=== PATIENT | male | born 2000 | race Caucasian/White ===

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

== ENCOUNTER 2020-06-03 12:46 | Emergency (ER) | payer OTHER ==
[2020-06-03] MEDS ORDERED: NORMAL SALINE 1000 ML 1,000 ML IV ONE (13:12)
--- NOTE | 2020-06-03 13:15 | ER Document Report ---
ED Medical Screen (RME) - General Chief Complaint: Abdominal Pain Stated Complaint: RIGHT ABDOMINAL PAIN Time Seen by Provider: 06/03/20 13:06 Notes: Patient is a 20-year-old male who presents emergency department with a chief complaint of right lower abdominal pain. Patient states that he has been on and off for the past 5 months. Patient states that when he lifts heavy objects he ends up having the pain. He denies any testicular pain. States that he only gets nauseous when he lifts heavy objects. He has bowel movements every day. Denies any abdominal surgery. Exam: Slightly tender right lower quadrant. I have greeted and performed a rapid initial assessment of this patient. A comprehensive ED assessment and evaluation of the patient, analysis of test results and completion of medical decision making process will be conducted by an additional ED providers. TRAVEL OUTSIDE OF THE [place] IN LAST 30 DAYS: No - Related Data Allergies/Adverse Reactions: No Known Allergies Allergy (Verified 09/03/18 15:46) Past Medical History Renal/ Medical History: Denies: Hx Peritoneal Dialysis Psychiatric Medical History: Reports: Hx Depression Physical Exam - Vital signs Vitals: Temp Pulse Resp BP Pulse Ox 98.7 F 88 16 126/76 H 100 06/03/20 12:50 06/03/20 12:50 06/03/20 12:50 06/03/20 12:50 06/03/20 12:50 Course - Vital Signs Vital signs: Temp Pulse Resp BP Pulse Ox 98.7 F 88 16 126/76 H 100 06/03/20 12:50 06/03/20 12:50 06/03/20 12:50 06/03/20 12:50 06/03/20 12:50
[2020-06-03 14:05] LABS: ABSOLUTE BASOPHILS # (AUTO) 0.1 10^3/uL (0.0-0.2); ABSOLUTE EOSINOPHILS # (AUTO) 0.1 10^3/uL (0.0-0.6); ABSOLUTE LYMPHOCYTES (AUTO) 1.7 10^3/uL (0.5-4.7); ABSOLUTE MONOCYTES (AUTO) 0.3 10^3/uL (0.1-1.4); ABSOLUTE NEUT (AUTO) 2.5 10^3/uL (1.7-8.2); BASOPHILS % (AUTO) 2.3 % (0-2); EOSINOPHILS % (AUTO) 1.8 % (0-6); LYMPHOCYTES % (AUTO) 36.1 % (13-45); MEAN CORPUSCULAR HEMOGLOBIN 31.1 pg (27.0-33.4); MEAN CORPUSCULAR HGB CONC 34.2 g/dL (32.0-36.0); MEAN CORPUSCULAR VOLUME 91 fl (80-97); MONOCYTES % (AUTO) 6.9 % (3-13); PLATELET COUNT 169 10^3/uL (150-450); RED BLOOD COUNT 4.52 10^6/uL (4.35-5.55); RED CELL DISTRIBUTION WIDTH 13.4 % (11.5-14.0); SEGMENTED NEUTROPHILS % (AUTO) 52.9 % (42-78); TOTAL CELLS COUNTED % (AUTO) 100 %; WHITE BLOOD COUNT 4.7 10^3/uL (4.0-10.5)
[2020-06-03 14:11] LABS: AMORPHOUS SEDIMENT,URINE TRACE /HPF; APPEARANCE,URINE CLOUDY; BILIRUBIN,URINE NEGATIVE (NEGATIVE); COLOR,URINE YELLOW; GLUCOSE, URINE NEGATIVE (NEGATIVE); KETONES,URINE NEGATIVE (NEGATIVE); LEUKOCYTE ESTERASE,URINE NEGATIVE (NEGATIVE); NITRITE,URINE NEGATIVE (NEGATIVE); PROTEIN,URINE NEGATIVE (NEGATIVE); URINE SPECIFIC GRAVITY 1.016
[2020-06-03 14:22] LABS: ALBUMIN 5.2 g/dL (3.5-5.0); ALKALINE PHOSPHATASE 52 U/L (38-126); ANION GAP 8 (5-19); ASPARTATE AMINO TRANSFERASE 25 U/L (17-59); BILIRUBIN,DIRECT 0.3 mg/dL (0.0-0.4); BILIRUBIN,TOTAL 0.8 mg/dL (0.2-1.3); BLOOD UREA NITROGEN 10 mg/dL (7-20); CALCIUM 10.3 mg/dL (8.4-10.2); CARBON DIOXIDE 28 mmol/L (22-30); CHLORIDE 104 mmol/L (98-107); GLUCOSE 91 mg/dL (75-110); POTASSIUM 4.9 mmol/L (3.6-5.0); TOTAL PROTEIN 7.9 g/dL (6.3-8.2)
[2020-06-03 14:44] LABS: URINE AMPHETAMINES SCREEN NEGATIVE; URINE BARBITURATES SCREEN NEGATIVE; URINE BENZODIAZEPINES SCREEN NEGATIVE; URINE COCAINE SCREEN NEGATIVE; URINE METHADONE SCREEN NEGATIVE; URINE PHENCYCLIDINE SCREEN NEGATIVE
[2020-06-03 14:46] LABS: URINE MARIJUANA (THC) SCREEN UNCONFIRMED POSITIVE
--- NOTE | 2020-06-03 15:49 | ER Document Report ---
ED GI/ - General Chief Complaint: Abdominal Pain Stated Complaint: RIGHT ABDOMINAL PAIN Time Seen by Provider: 06/03/20 13:06 Primary Care Provider: KALYANI ROGERS MD [Primary Care Provider] - Follow up tomorrow (Call for an outpatient follow-up appointment.) Mode of Arrival: Ambulatory Information source: Patient Notes: 20-year-old male presents to the emergency room complaining of intermittent right lower quadrant stabbing abdominal pain for the past 5 months. He denies any nausea, vomiting, no fevers, no urinary symptoms. Nothing makes it worse, nothing makes it better. He denies any testicular pain. No penile discharge. States he called his primary care office today and was told to come to the emergency room for rule out appendicitis. States he has been eating and drinking normally with normal urinary output and normal bowel movements. TRAVEL OUTSIDE OF THE [place] IN LAST 30 DAYS: No - Related Data Allergies/Adverse Reactions: No Known Allergies Allergy (Verified 09/03/18 15:46) Past Medical History - Social History Smoking Status: Current Every Day Smoker Chew tobacco use (# tins/day): No Frequency of alcohol use: None Drug Abuse: Marijuana Family History: Reviewed & Not Pertinent Renal/ Medical History: Denies: Hx Peritoneal Dialysis Psychiatric Medical History: Reports: Hx Depression Review of Systems - Review of Systems Constitutional: No symptoms reported Cardiovascular: No symptoms reported Respiratory: No symptoms reported Gastrointestinal: Abdominal pain. denies: Diarrhea, Nausea, Vomiting Genitourinary: No symptoms reported Musculoskeletal: No symptoms reported Skin: No symptoms reported Neurological/Psychological: No symptoms reported -: Yes All other systems reviewed and negative Physical Exam - Vital signs Vitals: Temp Pulse Resp BP Pulse Ox 98.7 F 88 16 126/76 H 100 06/03/20 12:50 06/03/20 12:50 06/03/20 12:50 06/03/20 12:50 06/03/20 12:50 - Notes Notes: GENERAL: Mild acute distress, non-toxic appearance. HEAD: Normal with no signs of head trauma. EYES: PERRLA, EOMI, conjunctiva normal, no discharge. EARS: Hearing grossly intact. NOSE: Normal. THROAT: Oropharynx is normal. NECK: Normal range of motion, no tenderness, supple, no lymphadenopathy, No adenopathy, no JVD. CHEST: Clear breath sounds bilaterally. No wheezes, rales, or rhonchi. CARDIAC: Regular rate and rhythm. S1 and S2, without murmurs, gallops, or rubs. VASCULAR: No Edema. Peripheral pulses normal and equal in all extremities. ABDOMEN: Normal and soft with no tenderness, no masses or pulsatile masses. No organomegaly. Positive bowel sounds x4. No CVA tenderness noted bilaterally. Tenderness on palpation to the right lower quadrant, there was no guarding, no rebound, no McBurney's GASTROINTESTINAL: Bowel sounds normal LYMPATHTIC: No lymphadenopathy noted. MUSCULOSKELETAL: Good range of motion of all major joints. Extremities without clubbing, cyanosis or edema. NEUROLOGICAL: Alert and oriented x 3. No focal sensory or strength deficits. Speech normal. Follows commands appropriately. PSYCHIATRIC: Normal Affect, judgement and mood. SKIN: Normal appearance with no rashes or lesions. Course - Re-evaluation Re-evalutation: 06/03/20 15:46 Patient is resting comfortably with mild right lower quadrant tenderness on palpation.. All lab results reviewed with the patient. Discussed at length with patient that his labs are normal but he would need a CT to fully rule out any other abnormalities causing his abdominal pain. Patient states he cannot stay any longer to get a CAT scan. He would like to leave AGAINST MEDICAL ADVICE. The patient has chosen to leave the facility against medical advice. The relevant issues have been reviewed and discussed with the patient and family at the bedside. At the time of this assessment there is no indication for involuntary commitment. The patient is alert, oriented, and able to express clearly their reasoning for not wanting to remain in the emergency department for further treatment. The patient is not clinically psychotic, intoxicated, and denies and suicidal ideation. Differential or suspected diagnoses based on medical screening exam: Abdominal pain The patient is aware of the concerning diagnoses and acknowledges understanding of the reasons for the following recommendations: Loss of life, permanent disability, chronic pain, worsening of condition, cardiac dysfunction, respiratory dysfunction ,loss of current lifestyle, urinary dysfunction, gastrointestinal dysfunction, reproductive dysfunction The following recommendations/services were offered and refused: Further testing and evaluation The following risks were explained: , permanent disability, loss of current lifestyle, respiratory dysfunction, urinary dysfunction, chronic pain, gastrointestinal dysfunction, reproductive dysfunction, Clinical impression: Patient is competent to make decisions regarding the medical that is being offered. He was counseled that he can return to the emergency room at any time for further evaluation and treatment. Outpatient follow-up with his primary care physician. Patient was given strict return to the emergency room guidelines. Return for any new or worsening symptoms. All questions were answered. Patient verbalized understanding and agrees with plan of care. 06/03/20 22:39 - Vital Signs Vital signs: Temp Pulse Resp BP Pulse Ox 98.4 F 63 18 114/63 100 06/03/20 16:41 06/03/20 16:41 06/03/20 16:41 06/03/20 16:41 06/03/20 16:41 - Laboratory Result Diagrams: 06/03/20 13:30 06/03/20 13:30 Laboratory results interpreted by me: 06/03/20 06/03/20 06/03/20 13:30 13:30 13:59 Baso % (Auto) 2.3 H Calcium 10.3 H Albumin 5.2 H Urine Urobilinogen 2.0 H - EKG Interpretation by Md EKG shows normal: Sinus rhythm Additional EKG results interpreted by me: 06/03/20 16:11 EKG was interpreted by ER physician Dr. Marinelli No acute STEMI Normal sinus rhythm Rate is 73 Early repolarization possible pericarditis No ST elevations No previous EKG for comparison Discharge - Discharge Clinical Impression: Abdominal pain of unknown etiology, Left against medical advice Condition: Stable Disposition: AGAINST MEDICAL ADVICE Instructions: Abdominal Pain ([facility]) Additional Instructions: You have requested to leave AGAINST MEDICAL ADVICE. You were counseled against the risks of leaving AGAINST MEDICAL ADVICE including but not limited to , chronic pain, worsening condition, loss of current lifestyle, respiratory dysfunction, gastrointestinal dysfunction, urinary dysfunction. Please follow-up as soon as possible with your primary care physician you may r eturn to the emergency room at any time for further evaluation and treatment. Referrals: KALYANI ROGERS MD [Primary Care Provider] - Follow up tomorrow (Call for an outpatient follow-up appointment.)
[2020-06-03 16:42] VITALS: BP 114/63
--- NOTE | 2020-06-03 18:02 | EKG REPORT ---
SEVERITY:- NORMAL ECG - SINUS RHYTHM : Confirmed by: Eulalio Marquez 03-Jun-2020 18:02:21
== END 2020-06-03 16:42 | disposition left against medical advice (07) ==
LOC: ER 12:46
DX: R10.31 Right lower quadrant pain (principal); R10.813 Right lower quadrant abdominal tenderness; F17.200 Nicotine dependence, unspecified, uncomplicated; F12.10 Cannabis abuse, uncomplicated; Z53.20 Procedure and treatment not carried out because of patient's decision for unspecified reasons
CPT/HCPCS: 36415; 80053; 80307; 81001; 83690; 85025; 93005; 93010; 99284